=== PATIENT | female | born 1980 | race Caucasian/White ===

== ENCOUNTER 2017-09-07 00:42 | Inpatient (IN) | payer BC ==
[2017-09-07] MEDS ORDERED: Nalbuphine 20 MG/1 ML Amp ONE (01:09)
[2017-09-07] MEDS ORDERED: Nalbuphine 20 MG/1 ML Amp IVPUSH PRN (01:11)
[2017-09-07] MEDS ORDERED: Sodium Chloride 0.9% 10 ML Syringe FLUSH PRN (01:11)
[2017-09-07] MEDS ORDERED: Ondansetron 4 MG/2 ML SDV IVPUSH PRN (01:11)
[2017-09-07] MEDS ORDERED: Oxytocin/Lactated Ringers 10 UNIT/1,000 ML BAG IV SCH (01:15)
[2017-09-07] MEDS: Lactated Ringers 1,000 ML IV SCH ×2 (01:15→01:53)
[2017-09-07] MEDS ORDERED: Sodium Chloride 0.9% 100 ML ONE (01:17)
[2017-09-07] MEDS ORDERED: Oxytocin/Lactated Ringers 10 UNIT/1,000 ML BAG IV ONE (01:22)
[2017-09-07] MEDS ORDERED: Ampicillin 2 GM in Sodium Chloride 0.9% 100 ML IV ONE (01:30)
[2017-09-07] MEDS ORDERED: ePHEDrine 50 MG/ML SDV IVPUSH PRN (01:49)
[2017-09-07] MEDS ORDERED: fentaNYL 100 MCG/2 ML SDV EPIDUR PRN (01:49)
[2017-09-07] MEDS ORDERED: diphenhydrAMINE 50 MG/ML SDV IVPUSH PRN (01:49)
--- NOTE | 2017-09-07 01:52 | PCM.LDHP ---
L&D History of Present Illness - General Date of Service: 09/07/17 Admit Problem/Dx: Patient Status Order with Admit Dx/Problem 09/07/17 01:11 Patient Status [ADT] Routine Admission Diagnosis/Problem Admission Diagnosis/Problem 09/07/17 01:41 39-6/7 week intrauterine , active labor, advanced cervical dilation 09/07/17 01:41 Sandy is a 37-year-old 4 para 2011 white female who is admitted in active labor. She initially was 5 cm, her percent effaced, bulging bag roth and contractions every 3-5 minutes upon admission to labor and delivery early on the a.m. of 09/07/2017. She is progressed well and heart tones are reassuring. 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 Her LUIS of 09/08/2017 is determined by a certain last menstrual was started on 12/02/2016 and is supported by 23 ultrasounds dating 02/23/2017 for 2016 and 04/28/2017. Her previous obstetric history includes a last menstrual period of 12/02/2016, cycles every 28 days, menarche age 11. Not using any control time conception. Her previous obstetric history includes: 1. Male infant born 12/14/2007 at 40 weeks gestational age after 12 hours labor- 9 lbs. 4 oz.-as Rob 2. Male born 11/19/2010 after 40 weeks gestational age-6 hours of laborchild's name is Elvis 3. Miscarriage on 07/10/2000 1511 weeks gestational age. course is consistent with patient declining genetic evaluation. She is hypothyroid, on replacement meds and clinically euthyroid. She plans to breast- feed. She is diagnosed with right breastatypical lobular hyperplasia. Urine culture was positive for group B strep. She is a candidate for prophylaxis in L& D. First visit was on 02/23/2017. Patient seen regularly throughout her course. Weight gain was from 142 pounds up to 163.4 pounds for 21.4 pound weight gain. Her fundal height growth was appropriate. Vital signs remained stable throughout the course. Allergies: codeine derivatives which causes vomiting. Medications: 1. Raymond Thyroid 90 mg orally taken daily 2. Multivitamins daily Past medical history: 1. Cerebral palsy. 2. Atypical lobular hyperplasia right breast. Past surgical history: Repair of 1. Tendon transfer secondary to her cerebral palsy, Tonsillectomy 3. Dorsal rhizotomy October 2015 Social history: Patient is , lives in [place], is a college graduate. She works at [employer]. She does not use any significant loss of alcohol , drugs or tobacco. 's name is Jimy Garcia Laboratory testing in the course shows her blood to be a positive with negative antibody screen. First laboratory testing showed hemoglobin 12.4 g/dL. Platelets are 209,000. Her Pap smear was negative. Rubella titer shows immunity. RPR is nonreactive. I urine culture showed group B strep positive results. Hepatitis B antigen and HIV assays were both negative. Her chlamydia and gonorrhea assays both negative. TSH at that time was 1.886 mU/L which is normal. Second trimester labs included hemoglobin of 12.8 g/dL. Platelets are 167,000. Her diabetic screening test was normal at 112. Second trimester thyroid function studies showed a normal TSH and free T4 at 1.559 and 0.60 respectively. Third trimester results on 07/19/2017 were also normal with a free T4 0.73 and a TSH of 0.379 Review of systems: Repair of skin: Negative Lungs: No infectious symptoms or shortness of breath. Cardiovascular: No chest pain or exercise intolerance Breasts: Atypical lobular hyperplasia as described above -right breast GI: Negative : Changes associated principally Neurological: Cervical palsy Musculoskeletal: Atrophy right side upper and lower extremities secondary to cerebral palsy Physical exam: Gen. well-developed well-nourished pleasant female in no acute distress. Alert and oriented 3. Skin is warm dry without lesions. HEENT neck and back within normal limits Lungs clear with good breath sounds in all lung del cid. Cardiovascular exam shows regular and rhythm. Breast exam deferred having been done the first visit and found to be normal. Abdomen is protuberant with fundal height of 38 cm, vertex presentation by Micheal nurse. Cervical examination by myself shows 8 cm cervical dilation, 100% effacement, bulging bag roth, vertex presentation, anterior, very soft Extremities show atrophy in upper and lower extremities right side secondary to cerebral palsy Illogical exam consistent with cerebral palsy - Related Data Allergies/Adverse Reactions: Allergies Allergy/AdvReac Type Severity Reaction Status Date / Time codeine AdvReac Vomiting Verified 07/11/14 17:11 Home Medications: Home Meds Escitalopram Oxalate 20 mg PO DAILY 07/12/14 [History] Ibuprofen 600 mg PO Q6HR PRN #30 tablet 07/12/14 [Rx] PNV95/Ferrous Fumarate/FA [ Tablet] 1 tab PO DAILY 07/12/14 [History] Thyroid [[place] Thyroid] 60 mg PO DAILY 07/12/14 [History] Social & Family History - Tobacco Use Smoking Status *Q: Never Smoker Second Hand Smoke Exposure: No - Alcohol Use Days Per Week of Alcohol Use: 0 Number of Drinks Per Day: 0 Total Drinks Per Week: 0 - Recreational Drug Use Recreational Drug Use: No Drug Use in Last 12 Months: No H&P Review of Systems - Review of Systems: Review Of Systems: See Below L&D Exam - Exam Exam: See Below - Patient Data Lab Results Last 24 hrs: Laboratory Results - last 24 hr 09/07/17 Range/Units 01:15 WBC 9.74 (3.98-10.04) K/mm3 RBC 3.81 L (3.98-5.22) M/mm3 Hgb 13.2 (11.2-15.7) gm/L Hct 37.5 (34.1-44.9) % MCV 98.4 H (79.4-94.8) fl MCH 34.6 H (25.6-32.2) pg MCHC 35.2 (32.2-35.5) g/dl RDW Std Deviation 41.9 (36.4-46.3) fL Plt Count 168 L (182-369) K/mm3 MPV 10.5 (9.4-12.3) fl Neut % (Auto) 66.9 (34.0-71.1) % Lymph % (Auto) 23.2 (19.3-51.7) % [place] % (Auto) 7.4 (4.7-12.5) % Eos % (Auto) 1.7 (0.7-5.8) Baso % (Auto) 0.2 (0.1-1.2) % Neut # (Auto) 6.51 H (1.56-6.13) K/mm3 Lymph # (Auto) 2.26 (1.18-3.74) K/mm3 [place] # (Auto) 0.72 H (0.24-0.36) K/mm3 Eos # (Auto) 0.17 (0.04-0.36) K/mm3 Baso # (Auto) 0.02 (0.01-0.08) K/mm3 Result Diagrams: 09/07/17 01:15 Problem List Initiated/Reviewed/Updated: Yes Orders Last 24hrs: Active Orders 24 hr Category Date Time Status Patient Status [ADT] Routine ADT 09/07/17 01:11 Active Activity as Tolerated [RC] PFP Care 09/07/17 01:11 Active Communication Order [RC] ASDIRECTED Care 09/07/17 01:11 Active Heart Tones [RC] ASDIRECTED Care 09/07/17 01:12 Active Notify Provider [RC] PFP Care 09/07/17 01:11 Active Notify Provider [RC] PRN Care 09/07/17 01:11 Active Peripheral IV Care [RC] . DIRECTED Care 09/07/17 01:12 Active Vital Signs [RC] PER UNIT ROUTINE Care 09/07/17 01:11 Active Ampicillin 1 gm Med 09/07/17 05:30 Active Sodium Chloride 0.9% [Normal Saline] 100 ml IV Q4H Ampicillin 2 gm Med 09/07/17 01:30 Active Sodium Chloride 0.9% [Normal Saline] 100 ml IV ONETIME Lactated Ringers [Ringers, Lactated] 1,000 ml Med 09/07/17 01:15 Active IV ASDIRECTED Nalbuphine [Nubain] Med 09/07/17 01:11 Active 10 mg IVPUSH Q2H PRN Ondansetron [Zofran] Med 09/07/17 01:11 Active 4 mg IVPUSH Q4H PRN Oxytocin/Lactated Ringers [Pitocin in LR 10 Units/1,000 Med 09/07/17 01:15 Active ML] 10 unit in 1,000 ml IV .CONTINUOUS Sodium Chloride 0.9% [Saline Flush] Med 09/07/17 01:11 Active 10 ml FLUSH ASDIRECTED PRN Electronic Heart Tones Ext w TOCO [WOMSER] Ot 09/07/17 01:11 Ordered Routine Electronic Heart Tones Internal [WOMSER] Per Unit Ot 09/07/17 01:11 Ordered Routine Peripheral IV Insertion Adult [OM.PC] Routine Ot 09/07/17 01:11 Ordered Resuscitation Status Routine Resus Stat 09/07/17 01:11 Ordered Medication Orders Ampicillin Sodium 2 gm/ Sodium (Chloride) 100 mls @ 200 mls/hr IV ONETIME ONE Stop: 09/07/17 01:59 Ampicillin Sodium 1 gm/ Sodium (Chloride) 100 mls @ 200 mls/hr IV Q4H CARMEN Lactated Ringer's (Ringers, Lactated) 1,000 mls @ 100 mls/hr IV ASDIRECTED CARMEN Oxytocin/Lactated Ringer's (Pitocin In Lr 10 Units/1,000 Ml) 10 unit in 1,000 mls @ 500 mls/hr IV .CONTINUOUS CARMEN Nalbuphine HCl (Nubain) 10 mg IVPUSH Q2H PRN PRN Reason: Pain (moderate 4-6) Ondansetron HCl (Zofran) 4 mg IVPUSH Q4H PRN PRN Reason: Nausea/Vomiting Sodium Chloride (Saline Flush) 10 ml FLUSH ASDIRECTED PRN PRN Reason: Keep Vein Open Assessment/Plan Comment:: Assessment: 1. 39-6/7 week intrauterine , active labor, advanced cervical dilation 2. Group B strep positive per urine culturepatient has received first dose of antibiotics 3. Patient desiring epidural 4. breast-feed 5. Cerebral palsy with atrophy of right upper and lower extremities Plan: 1. Anticipate normal spontaneous vaginal delivery 2. Epidural if at all possible timewise 3. Group B strep prophylaxis with ampicillinfirst dose given 4. Support breast feeding decision.
[2017-09-07] MEDS ORDERED: Bupivacaine/fentaNYL/NS 100 ML Bag EPIDUR SCH (02:00)
--- NOTE | 2017-09-07 02:07 | PCM.PREANE ---
Preanesthetic Assessment - Anesthesia/Transfusion/Family Hx Anesthesia History: Prior Anesthesia Without Reaction Family History of Anesthesia Reaction: No - Review of Systems General: No Symptoms Pulmonary: No Symptoms Cardiovascular: No Symptoms Gastrointestinal: No Symptoms Neurological: No Symptoms Other: Reports: None - Physical Assessment Pulse: 98 O2 Sat by Pulse Oximetry: 100 Respiratory Rate: 22 Blood Pressure: 146/63 Temperature: 36.3 C ASA Class: 2 Mental Status: Alert & Oriented x3 Airway Class: Mallampati = 1 Dentition: Reports: Normal Dentition Thyro-Mental Finger Breadths: 3 Mouth Opening Finger Breadths: 3 ROM/Head Extension: Full Lungs: Clear to Auscultation, Normal Respiratory Effort Cardiovascular: Regular Rate, Regular Rhythm, No Murmurs - Lab Values: Laboratory Last Values WBC 9.74 K/mm3 (3.98-10.04) 09/07/17 01:15 RBC 3.81 M/mm3 (3.98-5.22) L 09/07/17 01:15 Hgb 13.2 gm/L (11.2-15.7) 09/07/17 01:15 Hct 37.5 % (34.1-44.9) 09/07/17 01:15 MCV 98.4 fl (79.4-94.8) H 09/07/17 01:15 MCH 34.6 pg (25.6-32.2) H 09/07/17 01:15 MCHC 35.2 g/dl (32.2-35.5) 09/07/17 01:15 RDW Std Deviation 41.9 fL (36.4-46.3) 09/07/17 01:15 Plt Count 168 K/mm3 (182-369) L 09/07/17 01:15 MPV 10.5 fl (9.4-12.3) 09/07/17 01:15 Neut % (Auto) 66.9 % (34.0-71.1) 09/07/17 01:15 Lymph % (Auto) 23.2 % (19.3-51.7) 09/07/17 01:15 [place] % (Auto) 7.4 % (4.7-12.5) 09/07/17 01:15 Eos % (Auto) 1.7 (0.7-5.8) 09/07/17 01:15 Baso % (Auto) 0.2 % (0.1-1.2) 09/07/17 01:15 Neut # (Auto) 6.51 K/mm3 (1.56-6.13) H 09/07/17 01:15 Lymph # (Auto) 2.26 K/mm3 (1.18-3.74) 09/07/17 01:15 [place] # (Auto) 0.72 K/mm3 (0.24-0.36) H 09/07/17 01:15 Eos # (Auto) 0.17 K/mm3 (0.04-0.36) 09/07/17 01:15 Baso # (Auto) 0.02 K/mm3 (0.01-0.08) 09/07/17 01:15 - Allergies Allergies/Adverse Reactions: Allergies Allergy/AdvReac Type Severity Reaction Status Date / Time codeine AdvReac Vomiting Verified 07/11/14 17:11 - Anesthesia Plan Pre-Op Medication Ordered: None - Acknowledgements Anesthesia Type Planned: Spinal Pt an Appropriate Candidate for the Planned Anesthesia: Yes Alternatives and Risks of Anesthesia Discussed w Pt/Guardian: Yes Pt/Guardian Understands and Agrees with Anesthesia Plan: Yes PreAnesthesia Questionnaire Gastrointestinal 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: GERD Other Musculoskeletal History: lower back surgery - SUBSTANCE USE Smoking Status *Q: Never Smoker Second Hand Smoke Exposure: No Days Per Week of Alcohol Use: 0 Number of Drinks Per Day: 0 Total Drinks Per Week: 0 Recreational Drug Use History: No - HOME MEDS Home Medications: Home Meds Escitalopram Oxalate 20 mg PO DAILY 07/12/14 [History] Ibuprofen 600 mg PO Q6HR PRN #30 tablet 07/12/14 [Rx] PNV95/Ferrous Fumarate/FA [ Tablet] 1 tab PO DAILY 07/12/14 [History] Thyroid [[place] Thyroid] 60 mg PO DAILY 07/12/14 [History] - CURRENT (IN HOUSE) MEDS Current Meds: Current Medications Diphenhydramine HCl (Benadryl) 25 mg IVPUSH Q6H PRN PRN Reason: Itching Ephedrine Sulfate (Ephedrine Sulfate) 5 mg IVPUSH ASDIRECTED PRN PRN Reason: HYPOTENTSION Fentanyl (Sublimaze) 100 mcg EPIDUR Q3H PRN PRN Reason: PAIN Fentanyl/Bupivacaine HCl (Fentanyl/Bupivacaine/Ns 2 Mcg-0.125% 100 Ml) 100 ml EPIDUR ASDIRECTED [facility] Ampicillin Sodium 1 gm/ Sodium (Chloride) 100 mls @ 200 mls/hr IV Q4H CARMEN Lactated Ringer's (Ringers, Lactated) 1,000 mls @ 100 mls/hr IV ASDIRECTED CAR[facility] Last Admin: 09/07/17 01:53 Dose: 100 mls/hr Oxytocin/Lactated Ringer's (Pitocin In Lr 10 Units/1,000 Ml) 10 unit in 1,000 mls @ 500 mls/hr IV .CONTINUOUS [facility] Nalbuphine HCl (Nubain) 10 mg IVPUSH Q2H PRN PRN Reason: Pain (moderate 4-6) Last Admin: 09/07/17 01:30 Dose: 10 mg Ondansetron HCl (Zofran) 4 mg IVPUSH Q4H PRN PRN Reason: Nausea/Vomiting Sodium Chloride (Saline Flush) 10 ml FLUSH ASDIRECTED PRN PRN Reason: Keep Vein Open Discontinued Medications Ampicillin Sodium 2 gm/ Sodium (Chloride) 100 mls @ 200 mls/hr IV ONETIME ONE Stop: 09/07/17 01:59 Last Admin: 09/07/17 01:15 Dose: 200 mls/hr Sodium Chloride (Normal Saline) Confirm Administered Dose 100 mls @ as directed .ROUTE .STK-MED ONE Stop: 09/07/17 01:18 Last Admin: 09/07/17 01:44 Dose: Not Given Oxytocin/Lactated Ringer's (Pitocin In Lr 10 Units/1,000 Ml) Confirm Administered Dose 10 unit in 1,000 mls @ as directed IV .STK-MED ONE Stop: 09/07/17 01:23 Last Admin: 09/07/17 01:46 Dose: Not Given Nalbuphine HCl (Nubain) Confirm Administered Dose 20 mg .ROUTE .STK-MED ONE Stop: 09/07/17 01:10 Last Admin: 09/07/17 01:44 Dose: Not Given
--- NOTE | 2017-09-07 02:57 | PCM.SN ---
- Free Text/Narrative Note: Tabitha is a 37-year-old 4 now para 3013 white female who is admitted during the night of 09/06/2017 in active labor. She is justin every 3-5 minutes apart, was 5 cm dilated, 100% effaced with bulging bag of roth. heart tones were reassuring and patient appeared to be in active labor. Patient desired regional block and because of the rapid vessel labor a spinal block was placed. She went on to deliver a viable, lucio, female infant at 0227 hrs. on 09/07/2017. The baby weighed 3360 g, (7 pounds 6.5 ounces), was 21.0 inches long, had Apgars of 8 and 9 and delivered in a direct occiput anterior position. The perineum remained intact and no stitches were required. Baby was placed on mom's abdomen and mouth were bulb suctioned. The umbilical cord had 3 vesselsand was clamped and then eventually cut by the father of the baby. Her blood was obtained. Placenta delivered in a Rivera presentation, appeared to be intact and complete at 0232 hours. It was discarded per patient desire. Estimated blood loss was 100 mL. Patient plans to breast-feed. Condition: Good
[2017-09-07] MEDS ORDERED: Witch Hazel Medicated Pads 100/Jar TOP PRN (03:49)
[2017-09-07] MEDS ORDERED: Docusate Sodium 100 MG Cap PO PRN (03:49)
[2017-09-07] MEDS ORDERED: Acetaminophen 325 MG Tab PO PRN (03:49)
[2017-09-07] MEDS ORDERED: Lanolin 100% Cream 7 GM Tube TOP PRN (03:49)
[2017-09-07] MEDS ORDERED: Benzocaine/Menthol 20%-0.5% Spray 56 GM Canister TOP PRN (03:49)
[2017-09-07] MEDS: Ibuprofen 600 MG Tab PO PRN ×3 (04:03→20:32)
[2017-09-07] MEDS ORDERED: Ampicillin 1 GM in Sodium Chloride 0.9% 100 ML IV SCH (05:30)
--- NOTE | 2017-09-07 07:16 | PCM48HPAN ---
Post Anesthesia Note - EVALUATION WITHIN 48HRS OF ANESTHETIC Vital Signs in Normal Range: Yes Patient Participated in Evaluation: Yes Respiratory Function Stable: Yes Airway Patent: Yes Cardiovascular Function Stable: Yes Hydration Status Stable: Yes Pain Control Satisfactory: Yes Nausea and Vomiting Control Satisfactory: Yes Mental Status Recovered: Yes
[2017-09-07] MEDS ORDERED: Thyroid 60 MG Tab PO SCH (09:00)
[2017-09-07] MEDS ORDERED: Prenatal Multivitamin with Calcium/Folic Acid/Iron Tab PO SCH ×2 (09:00→12:00)
[2017-09-07] MEDS: IRON PO SCH (11:02)
[2017-09-07] MEDS: PRENATAL MULTIVITAMIN WITH CALCIUM PO SCH (11:02)
[2017-09-07] MEDS: Citalopram 20 MG Tab PO SCH (11:02)
[2017-09-07] MEDS: FOLIC ACID PO SCH (11:02)
--- NOTE | 2017-09-07 21:36 | PCM.SN ---
- Free Text/Narrative Note: No concerns during the course of this day. This is a day of delivery. Nursing doing well. Patient exam doing well, has little lochia. Is voiding without concerns. Plan: Routine cares.
[2017-09-07] MEDS ORDERED: Bupivacaine 0.25% 10 ML SDV ONE (22:22)
[2017-09-08] MEDS: Ibuprofen 600 MG Tab PO PRN ×2 (03:32→12:35)
[2017-09-08] MEDS: IRON PO SCH (07:59)
[2017-09-08] MEDS: PRENATAL MULTIVITAMIN WITH CALCIUM PO SCH (07:59)
[2017-09-08] MEDS: FOLIC ACID PO SCH (07:59)
[2017-09-08] MEDS: Citalopram 20 MG Tab PO SCH (08:06)
--- NOTE | 2017-09-08 13:01 | PCM.DCSUM1 ---
Discharge Summary - Hospital Course Free Text/Narrative:: Tabitha is a 37-year-old 4 now para 3013 white female who is admitted during the night of 09/06/2017 in active labor. She is justin every 3-5 minutes apart, was 5 cm dilated, 100% effaced with bulging bag of roth. heart tones were reassuring and patient appeared to be in active labor. Patient desired regional block and because of the rapid vessel labor a spinal block was placed. She went on to deliver a viable, lucio, female at 0227 hrs. on 09/07/2017. The baby weighed 3360 g, (7 pounds 6.5 ounces), was 21.0 inches long, had Apgars of 8 and 9 and delivered in a direct occiput anterior position. The perineum remained intact and no stitches were required. Baby was placed on mom's abdomen and mouth were bulb suctioned. The umbilical cord had 3 vesselsand was clamped and then eventually cut by the father of the baby. Her blood was obtained. Placenta delivered in a Rivera presentation, appeared to be intact and complete at 0232 hours. It was discarded per patient desire. Estimated blood loss was 100 mL. Patient plans to breast-feed. patient has done well. She is ambulating well, nursing without problems and voiding without concerns. Follow-up CBC is within normal limits for the period. She desires to be discharged today. - Discharge Data Discharge Date: 09/08/17 Discharge Disposition: Home, Self-Care 01 Condition: Good - Patient Instructions Diet: Regular Diet as Tolerated (Nursing diet with increased calories and calcium as recommended) Activity: As Tolerated (No intercourse or tampons until bleeding resolves) Driving: May Drive Today Showering/Bathing: May Shower (Take a bath) Notify Provider of: Fever, Increased Pain, Swelling and Redness, Nausea and/or Vomiting - Discharge Plan Home Medications: Home Meds Escitalopram Oxalate 20 mg PO DAILY 07/12/14 [History] PNV95/Ferrous Fumarate/FA [ Tablet] 1 tab PO DAILY 07/12/14 [History] Thyroid [[place] Thyroid] 90 mg PO DAILY 07/12/14 [History] Ibuprofen [IJD: Ibuprofen] 600 mg PO Q4H PRN tablet 09/08/17 [Rx] Referrals: Lucas Powell MD [Primary Care Provider] - [facility] - Discharge Summary/Plan Comment DC Time >30 min.: No Discharge Summary/Plan Comment: Discharge instructions: 1. Discharge home 2. Diet, activity and follow-up discussed with patient. Recommend nursing diet with increased calories and calcium. 3. Precautions given concern increased pain, bleeding, temperature, signs/ symptoms of DVT/PE. 4. Medications per home medication was printed, discussed with and given to the patient. 5. [facility] Diagnosis: Term -delivered Condition: Good - Patient Data Vitals - Most Recent: Last Vital Signs Temp 36.7 C 09/07/17 21:37 Pulse 60 09/08/17 03:28 Resp 12 09/08/17 03:28 BP 126/72 09/08/17 03:28 Pulse Ox 98 09/08/17 03:28 Weight - Most Recent: 73.255 kg I&O - Last 24 hours: Intake & Output 09/07/17 09/08/17 09/08/17 22:59 06:59 14:59 Intake Total 210 120 Balance 210 120 Lab Results - Last 24 hrs: Laboratory Results - last 24 hr 09/08/17 Range/Units 06:43 WBC 8.30 (3.98-10.04) K/mm3 RBC 3.40 L (3.98-5.22) M/mm3 Hgb 11.9 (11.2-15.7) gm/L Hct 34.2 (34.1-44.9) % MCV 100.6 H (79.4-94.8) fl MCH 35.0 H (25.6-32.2) pg MCHC 34.8 (32.2-35.5) g/dl RDW Std Deviation 43.0 (36.4-46.3) fL Plt Count 142 L (182-369) K/mm3 MPV 10.2 (9.4-12.3) fl Med Orders - Current: Current Medications Acetaminophen (Tylenol) 650 mg PO Q4H PRN PRN Reason: mild pain or fever Benzocaine/Menthol (Dermoplast Pain Relief [place]) 0 gm TOP ASDIRECTED PRN PRN Reason: Perineal Comfort Measure Citalopram Hydrobromide (Celexa) 40 mg PO DAILY [facility] Last Admin: 09/08/17 08:06 Dose: 40 mg Docusate Sodium (Colace) 100 mg PO BID PRN PRN Reason: Constipation Emollient Ointment (Lansinoh Hpa) 0 gm TOP ASDIRECTED PRN PRN Reason: Sore Nipples Last Admin: 09/08/17 08:02 Dose: 1 applic Ibuprofen (Motrin) 600 mg PO Q4H PRN PRN Reason: Mild pain or fever Last Admin: 09/08/17 12:35 Dose: 600 mg Thyroid 90 Mg Tab 0 each PO DAILY [facility] Last Admin: 09/08/17 08:00 Dose: 1 each Prenat Multivit/[place]/Iron/Folic Ac ( Plus Iron) 0 each PO DAILY [facility] Last Admin: 09/08/17 07:59 Dose: 1 each Witch Jessica (Tucks) 1 pad TOP ASDIRECTED PRN PRN Reason: Hemorrhoid pain Discontinued Medications Diphenhydramine HCl (Benadryl) 25 mg IVPUSH Q6H PRN PRN Reason: Itching Ephedrine Sulfate (Ephedrine Sulfate) 5 mg IVPUSH ASDIRECTED PRN PRN Reason: HYPOTENTSION Fentanyl (Sublimaze) 100 mcg EPIDUR Q3H PRN PRN Reason: PAIN Fentanyl/Bupivacaine HCl (Fentanyl/Bupivacaine/Ns 2 Mcg-0.125% 100 Ml) 100 ml EPIDUR ASDIRECTED [facility] Ampicillin Sodium 2 gm/ Sodium (Chloride) 100 mls @ 200 mls/hr IV ONETIME ONE Stop: 09/07/17 01:59 Last Admin: 09/07/17 01:15 Dose: 200 mls/hr Ampicillin Sodium 1 gm/ Sodium (Chloride) 100 mls @ 200 mls/hr IV Q4H [facility] Lactated Ringer's (Ringers, Lactated) 1,000 mls @ 100 mls/hr IV ASDIRECTED [facility] Last Admin: 09/07/17 01:53 Dose: 100 mls/hr Oxytocin/Lactated Ringer's (Pitocin In Lr 10 Units/1,000 Ml) 10 unit in 1,000 mls @ 500 mls/hr IV .CONTINUOUS [facility] Sodium Chloride (Normal Saline) Confirm Administered Dose 100 mls @ as directed .ROUTE .STK-MED ONE Stop: 12/13/17 01:18 Last Admin: 09/07/17 01:44 Dose: Not Given Oxytocin/Lactated Ringer's (Pitocin In Lr 10 Units/1,000 Ml) Confirm Administered Dose 10 unit in 1,000 mls @ as directed IV .STK-MED ONE Stop: 09/07/17 01:23 Last Admin: 09/07/17 01:46 Dose: Not Given Nalbuphine HCl (Nubain) Confirm Administered Dose 20 mg .ROUTE .STK-MED ONE Stop: 09/07/17 01:10 Last Admin: 09/07/17 01:44 Dose: Not Given Nalbuphine HCl (Nubain) 10 mg IVPUSH Q2H PRN PRN Reason: Pain (moderate 4-6) Last Admin: 09/07/17 01:30 Dose: 10 mg Ondansetron HCl (Zofran) 4 mg IVPUSH Q4H PRN PRN Reason: Nausea/Vomiting Prenat Multivit/[place]/Iron/Folic Ac ( Plus Iron) 1 each PO DAILY@1200 CARMEN Prenat Multivit/Clinical Manager/Iron/Folic Ac ( Plus Iron) 1 each PO DAILY [facility] Last Admin: 09/07/17 11:02 Dose: Not Given Sodium Chloride (Saline Flush) 10 ml FLUSH ASDIRECTED PRN PRN Reason: Keep Vein Open Thyroid ([place] Thyroid) 60 mg PO DAILY [facility] Last Admin: 09/07/17 11:02 Dose: Not Given *Q Meaningful Use (DIS) - VTE *Q VTE Criteria *Q: - Stroke *Q Stroke Criteria *Q: - AMI *Q AMI Criteria *Q:
== END 2017-09-08 15:40 | disposition home or self-care (01) | DRG 560 ==
LOC: JD.OBCHECK 00:42 → JD.OB 00:46 → JD.OBCHECK 01:11 → JD.OB 01:24 → OBSVTOIN 02:27 → JD.MS 02:27 → JD.OB 13:11
PROVIDERS: ADMIT Obstetrics & Gynecology; ATTEND Obstetrics & Gynecology
PROC: 10E0XZZ Delivery of Products of Conception, External Approach (ICD-10-PCS; principal; 2017-09-07)
PROC: 00HU33Z Insertion of Infusion Device into Spinal Canal, Percutaneous Approach (ICD-10-PCS; 2017-09-07)
PROC: 3E0R3BZ Introduction of Anesthetic Agent into Spinal Canal, Percutaneous Approach (ICD-10-PCS; 2017-09-07)
DX: O99.284 Endocrine, nutritional and metabolic diseases complicating childbirth (principal); E03.9 Hypothyroidism, unspecified; Z3A.00 Weeks of gestation of pregnancy not specified; Z37.0 Single live birth; Z88.5 Allergy status to narcotic agent; Z79.899 Other long term (current) drug therapy; O99.354 Diseases of the nervous system complicating childbirth; G80.9 Cerebral palsy, unspecified; O99.824 Streptococcus B carrier state complicating childbirth
CPT/HCPCS: 01967; 36415; 51701; 59409; 85025; 85027; A9270-GY; J0290; J2300; J7030; J7120

== ENCOUNTER 2020-09-09 08:56 | Inpatient (IN) | payer BC ==
[~2020-09-09 08:56] MED LIST: Bupivacaine 0.25% 10 ML SDV ONE; Lidocaine 1.5% with EPINEPHrine 1:200,000 5 ML Amp ONE
[2020-09-09] MEDS ORDERED: Sodium Chloride 0.9% 10 ML Syringe FLUSH PRN (09:22)
[2020-09-09] MEDS ORDERED: Nalbuphine 10 MG/1 ML Vial IVPUSH PRN (09:22)
[2020-09-09] MEDS ORDERED: Oxytocin/Lactated Ringers 10 UNIT/1,000 ML BAG IV SCH (09:30)
[2020-09-09] MEDS: Lactated Ringers 1,000 ML IV SCH ×3 (09:44→12:14)
--- NOTE | 2020-09-09 09:59 | PCM.LDHP ---
L&D History of Present Illness - General Date of Service: 09/09/20 Admit Problem/Dx: Patient Status Order with Admit Dx/Problem 09/09/20 09:23 Patient Status [ADT] Routine Admission Diagnosis/Problem Admission Diagnosis/Problem Labor established 09/09/20 09:44 Tabitha is a 40-year-old 5 para 3-0-1-3 white female admitted at 40 and 07 weeks gestational age with an LUIS of 09/09/2020 in active labor with advanced cervical dilation of 6 cm. Source of Information: Patient History Limitations: Reports: No Limitations - History of Present Illness Introduction:: Tabitha is a 40-year-old 5 para 3-0-1-3 white female admitted at 40 and 07 weeks gestational age with an LUIS of 09/09/2020 in active labor with advanced cervical dilation of 6 cm. She reports starting contractions on the a.m. of 09/09/2020 and they progressed to about q. 8 minutes at this time. They are moderate in strength. Baby's been active. heart tones are reassuring. INTAKE CLERK history: 5 para 3-0-1-3. Patient normal menarch. Cycles monthly. LMP 12/04/2019, relatively certain and not on any control at the time of conception. is dated by the LMP and is supported by multiple ultrasounds during the course of the . Patient denies any abnormal Pap smears or STIs. Her past obstetric history includes the followin. Male born 12/14/2007 at 42 weeks gestational age after 12 hours of labor9 pounds 4 ouncesNSVDepiduralSt. [facility]. Male born 11/19/2010 at 40 weeks gestational age after 6 hours of labor8 pounds 15 ouncesNSVDepiduralSt. [facility] 3. Miscarriage on 07/10/2015 at 11 weeks gestational age 4. Female born 09/07/2018 at 39-6/7 weeks gestational age after 8 hours of labor7 pounds 6 ouncesNSVDspinal anesthesiaSt. [facility] course: Patient was initially seen for the at 11 weeks and 2 days. She has made normal progress fundal height lundberg during the course the with normal blood pressures and vital signs throughout the . No significant concerns have been noted. Her risk factors include risk of advanced maternal age, history of cerebral palsy, history of macrosomic baby. She had an [place] depression screen score of 3/30 on 04/16/2020. She plans to breast-feed. Prequel noninvasive screen was negative for trisomy 21, 18 and 13. She had a history of mild thrombocytopenia during . She is also hypothyroid, on [place] Thyroid and clinically euthyroid at this time on replacement meds. Weight gain during the course of the was from 133.3 pounds to 152 pounds for approximately 19 pound increase. Laboratory testing in shows blood to be a positive with a negative antibody screen. First hemoglobin was 12.3 g/dL and platelets are 204 ,000. Pap smear was normal. Rubella titer was immune and RPR was nonreactive. Patient's urine culture showed Gardnerella vaginalis and this was treated early in . Hepatitis B surface antigen and HIV assays were both negative. Chlamydia and gonorrhea tests were negative. TSH on 01/14/2020 was normal at 0.031 milliunits per milliliter. Her labs showed a hemoglobin 12.5 g/dL. Platelets are 175,000. Diabetic screening test was 134. Thyroid function studies were normal. She is group B strep negative. Allergies: Codeine derivatives which cause her to vomit Medications: 1. [place] Thyroid 15 mg oral tablet daily plus [place] Thyroid 90 mg daily. Total dosage is 105 mg of [place] Thyroid per day 2. Ferrous sulfate 325 mg p.o. daily 3. vitamins 1 p.o. daily 4. Vitamin D1000 units daily 5. Multivitamin oral tablet daily Past medical history: 1. Hypothyroidism on replacement and clinically euthyroid 2. Vaginal delivery x3 with largest baby 9 pounds 4 ounces 3. History of cerebral palsy 4. Miscarriage x1 with third 2014 5. Atypical lobular hyperplasia right breast Past surgical history: 1. Tendon transfers for cerebral palsy 2. Dorsal spine surgery 10/2015 for cerebral palsy 3. Tonsillectomy Family history: Mother is alive and well. Father is alive and well but with a history of skin cancer. 3 sisters alive and well. No related issues. 1 sister with history of breast cancer. Maternal grandmother is alive and well. Paternal grandmother is at age 95. Paternal grandfather from lung cancer. No known family history of bleeding, clotting disorders, anesthesia related issues, related issues. 1 paternal aunt with breast cancer. Social history: Patient is . is Jimy. 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 She is a college graduate. She does not use any significant alcohol, drugs or tobacco. She is an avid runner and exercises regularly. They live in [place] [employer]. Review of systems: In general patient has no complaints. Has been active. Contractions as above. Skin: Negative Lungs: No infectious symptoms or shortness of breath Cardiovascular: No chest pain or exercise intolerance Breasts: No lumps, changes in size, pain, dimpling, discharge or axillary or supraclavicular concerns. GI: Negative : Changes as per history of . Musculoskeletal: Negative Neurological: Negative Physical exam: In general the patient is well-developed, well-nourished, pleasant female of stated age in no acute distress. She is reporting contractions at a moderate intensity. On last evaluation in clinic patient noted to have blood pressure 110/62. Weight was 152.8. Fundal height was appropriate for dates. Her pregravid weig ht was 133.3. Height is 5 feet 6 inches. Pregravid BMI was 21.5. Skin is warm dry without lesions. HEENT, neck and back within normal limits. Lungs are clear with good breath sounds in all lung del cid. Cardiovascular exam shows regular and rhythm without murmurs. Exam was done at first annual visit and found to be normal. Is not repeated at this time. Patient does plan to breast-feed. Abdomen is gravid with fundal height consistent with dates. Baby in vertex presentation.. Genital exam per digital done by nurse shows patient to be 6 cm dilated. Baby in vertex presentation. Bag roth is intact. Extremities and neurological exam are grossly within normal limits. - Related Data Allergies/Adverse Reactions: Allergies Allergy/AdvReac Type Severity Reaction Status Date / Time codeine AdvReac Vomiting Verified 07/11/14 17:11 Home Medications: Home Meds Escitalopram Oxalate 20 mg PO DAILY 07/12/14 [History] Pnv No.95/Ferrous Fum/Folic AC [ Tablet] 1 tab PO DAILY 07/12/14 [History] Thyroid [[place] Thyroid] 90 mg PO DAILY 07/12/14 [History] Ibuprofen [IJD: Ibuprofen] 600 mg PO Q4H PRN tablet 09/08/17 [Rx] Past Medical History Gastrointestinal 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: GERD INTAKE 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: Other Musculoskeletal History: lower back surgery Neurological 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: Cerebral Palsy Psychiatric 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: Depression Endocrine/Metabolic 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: Hypothyroidism - Past Surgical History HEENT Surgical 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: Tonsillectomy Neurological Surgical 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: Other (See Below) Other Neurological Surgeries/Procedures: lower back Social & Family History - Family History Family Medical History: No Pertinent Family History - Caffeine Use Caffeine Use: Reports: Coffee, Soda, Tea Other Caffeine Use: 2-3 per day H&P Review of Systems - Review of Systems: Review Of Systems: See Below L&D Exam - Exam Exam: See Below - Vital Signs Weight: 70.08 kg Problem List Initiated/Reviewed/Updated: Yes Orders Last 24hrs: Active Orders 24 hr Category Date Time Status Patient Status [ADT] Routine ADT 09/09/20 09:23 Active Activity as Tolerated [RC] PFP Care 09/09/20 09:22 Active Communication Order [RC] ASDIRECTED Care 09/09/20 09:22 Active Heart Tones [RC] ASDIRECTED Care 09/09/20 09:23 Active Non Stress Test [RC] PER UNIT ROUTINE Care 09/09/20 09:22 Active Notify Provider [RC] PFP Care 09/09/20 09:22 Active Notify Provider [RC] PRN Care 09/09/20 09:22 Active Peripheral IV Care [RC] . DIRECTED Care 09/09/20 09:23 Active Vital Signs [RC] PER UNIT ROUTINE Care 09/09/20 09:22 Active CBC WITH AUTO DIFF [HEME] Stat Lab 09/09/20 09:22 Ordered CORONAVIRUS COVID-19 PCR PHL Stat Lab 09/09/20 09:27 Ordered RAPID PLASMA REAGIN,RPR [CHEM] Routine Lab 09/09/20 09:22 Ordered Lactated Ringers [Ringers, Lactated] 1,000 ml Med 09/09/20 09:30 Active IV ASDIRECTED Nalbuphine [Nubain] Med 09/09/20 09:22 Active 10 mg IVPUSH Q2H PRN Oxytocin/Lactated Ringers [Pitocin in LR 10 Units/1,000 Med 12/15/20 09:30 Active ML] 10 unit in 1,000 ml IV .CONTINUOUS Sodium Chloride 0.9% [Saline Flush] Med 09/09/20 09:22 Active 10 ml FLUSH ASDIRECTED PRN Electronic Heart Tones Ext w TOCO [WOMSER] Oth 09/09/20 09:22 Ordered Routine Electronic Heart Tones Internal [WOMSER] Per Unit Oth 09/09/20 09:22 Ordered Routine Peripheral IV Insertion Adult [OM.PC] Routine Oth 09/09/20 09:22 Ordered Resuscitation Status Routine Resus Stat 09/09/20 09:22 Ordered Medication Orders Oxytocin/Lactated Ringer's (Pitocin In Lr 10 Units/1,000 Ml) 10 unit in 1,000 mls @ 500 mls/hr IV .CONTINUOUS CARMEN Lactated Ringer's (Ringers, Lactated) 1,000 mls @ 100 mls/hr IV ASDIRECTED CARMEN Last Admin: 09/09/20 09:44 Dose: 100 mls/hr Documented by: KELLCOL Nalbuphine HCl (Nubain) 10 mg IVPUSH Q2H PRN PRN Reason: Pain Sodium Chloride (Saline Flush) 10 ml FLUSH ASDIRECTED PRN PRN Reason: Keep Vein Open Assessment/Plan Comment:: 1. 5 para 3-0-1-3 white female at 40 and 07 weeks gestational age with an LUIS of 09/09/2020 admitted in active labor with advanced cervical dilation 2. Risk factors for the include advanced maternal age, history of cerebral palsy, history of macrosomic baby 3. Patient desires natural labor 4. Group B strep screen is negative 5. [place] noninvasive screen for trisomy 21, 18 and 13 was negative. 6. Patient has received her influenza vaccination on 07/16/2020 and her Tdap on the same day. She is rubella immune. 7. Patient plans to breast-feed which she has done in the past. Plan: 1. Anticipate 2. Admission labs include Covid19, CBC and RPR per protocol 3. Routine labor care 4. IV Nubain as needed if patient desires analgesia in labor 5. Support breast-feeding decision.
[2020-09-09] MEDS ORDERED: Bupivacaine/fentaNYL/NS 100 ML Bag EPIDUR PRN (10:03)
[2020-09-09] MEDS ORDERED: ePHEDrine 50 MG/ML SDV IVPUSH PRN (10:03)
[2020-09-09] MEDS ORDERED: diphenhydrAMINE 50 MG/ML SDV IVPUSH PRN (10:03)
[2020-09-09] MEDS: fentaNYL 100 MCG/2 ML SDV EPIDUR PRN ×2 (10:13→12:46)
--- NOTE | 2020-09-09 10:52 | PCM.PREANE ---
Preanesthetic Assessment - Procedure Proposed Procedure: Continuous labor epidural - Anesthesia/Transfusion/Family Hx Anesthesia History: Prior Anesthesia Without Reaction - Review of Systems General: No Symptoms Pulmonary: No Symptoms Cardiovascular: No Symptoms Gastrointestinal: No Symptoms Neurological: Pre-Existing Deficit (cerebral palsy) Other: Reports: Depression, Anxiety - Physical Assessment Height: 1.68 m Weight: 70.08 kg ASA Class: 2 Mental Status: Alert & Oriented x3 Airway Class: Mallampati = 2 Dentition: Reports: Normal Dentition Thyro-Mental Finger Breadths: 3 Mouth Opening Finger Breadths: 3 ROM/Head Extension: Full Lungs: Clear to Auscultation, Normal Respiratory Effort Cardiovascular: Regular Rate, Regular Rhythm - Lab Values: Laboratory Last Values WBC 10.23 K/mm3 (3.98-10.04) H 09/09/20 09:45 RBC 3.75 M/mm3 (3.98-5.22) L 09/09/20 09:45 Hgb 13.2 gm/dl (11.2-15.7) 09/09/20 09:45 Hct 38.0 % (34.1-44.9) 09/09/20 09:45 MCV 101.3 fl (79.4-94.8) H 09/09/20 09:45 MCH 35.2 pg (25.6-32.2) H 09/09/20 09:45 MCHC 34.7 g/dl (32.2-35.5) 09/09/20 09:45 RDW Std Deviation 43.6 fL (36.4-46.3) 09/09/20 09:45 Plt Count 156 K/mm3 (182-369) L 09/09/20 09:45 MPV 10.6 fl (9.4-12.3) 09/09/20 09:45 Neut % (Auto) 72.4 % (34.0-71.1) H 09/09/20 09:45 Lymph % (Auto) 20.9 % (19.3-51.7) 09/09/20 09:45 [place] % (Auto) 5.0 % (4.7-12.5) 09/09/20 09:45 Eos % (Auto) 0.5 (0.7-5.8) L 09/09/20 09:45 Baso % (Auto) 0.2 % (0.1-1.2) 09/09/20 09:45 Neut # (Auto) 7.41 K/mm3 (1.56-6.13) H 09/09/20 09:45 Lymph # (Auto) 2.14 K/mm3 (1.18-3.74) 09/09/20 09:45 [place] # (Auto) 0.51 K/mm3 (0.24-0.36) H 09/09/20 09:45 Eos # (Auto) 0.05 K/mm3 (0.04-0.36) 09/09/20 09:45 Baso # (Auto) 0.02 K/mm3 (0.01-0.08) 09/09/20 09:45 - Allergies Allergies/Adverse Reactions: Allergies Allergy/AdvReac Type Severity Reaction Status Date / Time codeine AdvReac Vomiting Verified 07/11/14 17:11 - Acknowledgements Anesthesia Type Planned: Epidural Pt an Appropriate Candidate for the Planned Anesthesia: Yes Alternatives and Risks of Anesthesia Discussed w Pt/Guardian: Yes Pt/Guardian Understands and Agrees with Anesthesia Plan: Yes PreAnesthesia Questionnaire Gastrointestinal 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: GERD 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: Other Musculoskeletal History: lower back surgery Neurological 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: Cerebral Palsy Psychiatric 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: Depression Endocrine/Metabolic 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: Hypothyroidism - Past Surgical History HEENT Surgical 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: Tonsillectomy Neurological Surgical 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: Other (See Below) Other Neurological Surgeries/Procedures: lower back - HOME MEDS Home Medications: Home Meds Escitalopram Oxalate 20 mg PO DAILY 07/12/14 [History] Pnv No.95/Ferrous Fum/Folic AC [ Tablet] 1 tab PO DAILY 07/12/14 [History] Thyroid [[place] Thyroid] 90 mg PO DAILY 07/12/14 [History] Ibuprofen [IJD: Ibuprofen] 600 mg PO Q4H PRN tablet 09/08/17 [Rx] - CURRENT (IN HOUSE) MEDS Current Meds: Current Medications Diphenhydramine HCl (Benadryl) 25 mg IVPUSH Q6H PRN PRN Reason: pruritis Ephedrine Sulfate (Ephedrine Sulfate) 5 mg IVPUSH ASDIRECTED PRN PRN Reason: Hypotension Fentanyl (Sublimaze) 100 mcg EPIDUR Q3H PRN PRN Reason: Pain Last Admin: 09/09/20 10:13 Dose: 100 mcg Documented by: Fentanyl/Bupivacaine HCl (Fentanyl/Bupivacaine/Ns 2 Mcg-0.125% 100 Ml) 100 ml EPIDUR ASDIRECTED PRN PRN Reason: Pain Oxytocin/Lactated Ringer's (Pitocin In Lr 10 Units/1,000 Ml) 10 unit in 1,000 mls @ 500 mls/hr IV .CONTINUOUS CARMEN Lactated Ringer's (Ringers, Lactated) 1,000 mls @ 100 mls/hr IV ASDIRECTED CARMEN Last Admin: 09/09/20 10:14 Dose: 100 mls/hr Documented by: Nalbuphine HCl (Nubain) 10 mg IVPUSH Q2H PRN PRN Reason: Pain Sodium Chloride (Saline Flush) 10 ml FLUSH ASDIRECTED PRN PRN Reason: Keep Vein Open
--- NOTE | 2020-09-09 18:37 | PCM.SN.2 ---
- Free Text/Narrative Note: Delivery Note: Tabitha is a 40-year-old 5 para 3-0-1-3 white female admitted at 40 and 07 weeks gestational age with an LUIS of 09/09/2020 in active labor with advanced cervical dilation of 6 cm. This to complete cervical dilation and at approximately 29 hours on 09/09/2020 she, lucio, male with Apgars of 9 and 9, a weight of 4140 g (9 pounds 2 ounces), a length of 21.5 inches in a direct occiput anterior position over an intact perineum. The baby was placed on mom's abdomen. Nose and mouth were bulb suctioned and baby was dried. Pitocin was increased to 500 cc an hour to facilitate increase in uterine tone and decrease likelihood of uterine bleeding. The umbilical cord was allowed to pulsate for approximately 2 to 3 minutes. It was then clamped x2 and cut by the baby's father. The umbilical cord had 3 vessels. Cord blood was obtained. The perineum was inspected and found to be intact. The placenta delivered in a [place] presentation, appeared intact and complete and was discarded per patient desire. Estimated blood loss was 200 cc. Patient plans to breast-feed. Condition: Good
[2020-09-09] MEDS ORDERED: Ibuprofen 600 MG Tab PO PRN (21:22)
[2020-09-09] MEDS ORDERED: Benzocaine/Menthol 20%-0.5% Spray 56 GM Canister TOP PRN (21:22)
[2020-09-09] MEDS ORDERED: Docusate Sodium 100 MG Cap PO PRN (21:22)
[2020-09-09] MEDS ORDERED: Witch Hazel Medicated Pads 40/Jar TOP PRN (21:22)
[2020-09-09] MEDS ORDERED: Acetaminophen 325 MG Tab PO PRN (21:22)
--- NOTE | 2020-09-10 06:39 | PCM.SN.2 ---
- Free Text/Narrative Note: note: Patient is doing well in the period. Minimal lochia, voiding well, ambulated without problems. Nursing without concerns. Patient is afebrile, vital signs are stable Abdomen is flat, soft, uterus is below the umbilicus and is firm and nontender. Legs are nontender. Assessment: recovery going well. Plan: Routine care. Patient be discharged home within the next 24-48 hours.
--- NOTE | 2020-09-10 06:43 | PCM.DCSUM1 ---
Discharge Summary - Hospital Course Free Text/Narrative:: Tabitha is a 40-year-old 5 para 3-0-1-3 white female admitted at 40 and 07 weeks gestational age with an LUIS of 09/09/2020 in active labor with advanced cervical dilation of 6 cm. This to complete cervical dilation and at approximately 29 hours on 09/09/2020 she, lucio, male infant with Apgars of 9 and 9, a weight of 4140 g (9 pounds 2 ounces), a length of 21.5 inches in a direct occiput anterior position over an intact perineum. The baby was placed on mom's abdomen. Nose and mouth were bulb suctioned and baby was dried. Pitocin was increased to 500 cc an hour to facilitate increase in uterine tone and decrease likelihood of uterine bleeding. The umbilical cord was allowed to pulsate for approximately 2 to 3 minutes. It was then clamped x2 and cut by the baby's father. The umbilical cord had 3 vessels. Cord blood was obtained. The perineum was inspected and found to be intact. The placenta delivered in a Rivera presentation, appeared intact and complete and was discarded per patient desire. Estimated blood loss was 200 cc. Patient plans to breast-feed. Patient is done well. She is ambulating well. Epidural has completely worn off. She is voiding without problems, has minimal lochia and is nursing well. She is desiring discharge home. Condition: Good Diagnosis: Stroke: No - Discharge Data Discharge Date: 09/10/20 Discharge Disposition: Home, Self-Care 01 Condition: Good - Referral to Home Health Primary Care Physician: Lucas Powell MD - Patient Instructions Diet: Regular Diet as Tolerated (Nursing diet with increased calories and calcium as recommended) Activity: As Tolerated (No intercourse or tampons until bleeding resolves) Driving: May Drive Today Showering/Bathing: May Shower Showering/Bathing, Other: May take a bath Notify Provider of: Fever, Increased Pain, Swelling and Redness, Nausea and/or Vomiting - Discharge Plan Home Medications: Home Meds Pnv No.95/Ferrous Fum/Folic AC [ Tablet] 1 tab PO DAILY 07/12/14 [History] Thyroid [[place] Thyroid] 105 mg PO DAILY 07/12/14 [History] Ferrous Sulfate [Iron] 1 tab PO DAILY 09/09/20 [History] Acetaminophen [Tylenol] 650 mg PO Q4H PRN tablet 09/10/20 [Rx] Ibuprofen [Motrin] 600 mg PO Q4H PRN tablet 09/10/20 [Rx] antoinette Chance [Tucks] 1 pad TOP ASDIRECTED PRN pad 09/10/20 [Rx] Referrals: Lucas Powell MD [Primary Care Provider] - (Return to clinicDr. Powell2-3 weeks.) - Discharge Summary/Plan Comment DC Time >30 min.: No Discharge Summary/Plan Comment: Discharge instructions: 1. Discharge home 2. Diet, activity and follow-up discussed with patient. Recommend nursing diet with increased calories and calcium. 3. Precautions given concern increased pain, bleeding, temperature, signs/symptoms of DVT/PE. 4. Medications per home medication was printed, discussed with and given to the patient. 5. Return to clinic-[facility]. Powell[facility] in 23 weeks. Diagnosis: Term -delivered Condition: Good - Patient Data Vitals - Most Recent: Last Vital Signs Temp 36.7 C 09/10/20 05:04 Pulse 78 09/09/20 09:11 Resp 16 09/10/20 05:04 BP 113/63 09/10/20 05:04 Pulse Ox 100 09/09/20 09:11 Weight - Most Recent: 69.853 kg Lab Results - Last 24 hrs: Laboratory Results - last 24 hr 09/09/20 09/09/20 09/09/20 Range/Units 09:40 09:45 09:45 WBC 10.23 H (3.98-10.04) K/mm3 RBC 3.75 L (3.98-5.22) M/mm3 Hgb 13.2 (11.2-15.7) gm/dl Hct 38.0 (34.1-44.9) % MCV 101.3 H (79.4-94.8) fl MCH 35.2 H (25.6-32.2) pg MCHC 34.7 (32.2-35.5) g/dl RDW Std Deviation 43.6 (36.4-46.3) fL Plt Count 156 L (182-369) K/mm3 MPV 10.6 (9.4-12.3) fl Neut % (Auto) 72.4 H (34.0-71.1) % Lymph % (Auto) 20.9 (19.3-51.7) % [place] % (Auto) 5.0 (4.7-12.5) % Eos % (Auto) 0.5 L (0.7-5.8) Baso % (Auto) 0.2 (0.1-1.2) % Neut # (Auto) 7.41 H (1.56-6.13) K/mm3 Lymph # (Auto) 2.14 (1.18-3.74) K/mm3 [place] # (Auto) 0.51 H (0.24-0.36) K/mm3 Eos # (Auto) 0.05 (0.04-0.36) K/mm3 Baso # (Auto) 0.02 (0.01-0.08) K/mm3 RPR Non-reactive (NONREACTIVE) SARS-CoV-2 RNA (HERMANN) Negative (NEGATIVE) Med Orders - Current: Current Medications Acetaminophen (Tylenol) 650 mg PO Q4H PRN PRN Reason: mild pain or fever Benzocaine/Menthol (Dermoplast Pain Relief [place]) 0 gm TOP ASDIRECTED PRN PRN Reason: Perineal Comfort Measure Docusate Sodium (Colace) 100 mg PO BID PRN PRN Reason: Constipation Ferrous Sulfate (Ferrous Sulfate) 324 mg PO DAILY CARMEN Ibuprofen (Motrin) 600 mg PO Q4H PRN PRN Reason: Mild pain or fever Prenat Multivit/[place]/Iron/Folic Ac ( Plus Iron) 1 each PO DAILY [facility] Thyroid ([place] Thyroid) 105 mg PO DAILY [facility] Witch Jessica (Tucks) 1 pad TOP ASDIRECTED PRN PRN Reason: Perineal Comfort Measure Discontinued Medications Bupivacaine HCl (Sensorcaine-Mpf 0.25%) 10 ml .ROUTE .STK-MED ONE Stop: 09/09/20 08:01 Diphenhydramine HCl (Benadryl) 25 mg IVPUSH Q6H PRN PRN Reason: pruritis Ephedrine Sulfate (Ephedrine Sulfate) 5 mg IVPUSH ASDIRECTED PRN PRN Reason: Hypotension Fentanyl (Sublimaze) 100 mcg EPIDUR Q3H PRN PRN Reason: Pain Last Admin: 09/09/20 12:46 Dose: 100 mcg Documented by: Fentanyl/Bupivacaine HCl (Fentanyl/Bupivacaine/Ns 2 Mcg-0.125% 100 Ml) 100 ml EPIDUR ASDIRECTED PRN PRN Reason: Pain Oxytocin/Lactated Ringer's (Pitocin In Lr 10 Units/1,000 Ml) 10 unit in 1,000 mls @ 500 mls/hr IV .CONTINUOUS CARMEN Last Admin: 09/09/20 13:32 Dose: 500 mls/hr Documented by: Lactated Ringer's (Ringers, Lactated) 1,000 mls @ 100 mls/hr IV ASDIRECTED CARMEN Last Admin: 09/09/20 12:14 Dose: 100 mls/hr Documented by: Lidocaine/Epinephrine (Xylocaine-Mpf 1.5% W/Epinephrine 1:200,000) 5 ml .ROUTE .[facility]-MED ONE Stop: 09/09/20 08:01 Nalbuphine HCl (Nubain) 10 mg IVPUSH Q2H PRN PRN Reason: Pain Sodium Chloride (Saline Flush) 10 ml FLUSH ASDIRECTED PRN PRN Reason: Keep Vein Open Thyroid ([place] Thyroid) 105 mg PO DAILY CARMEN
--- NOTE | 2020-09-10 07:07 | PCM48HPAN ---
Post Anesthesia Note - EVALUATION WITHIN 48HRS OF ANESTHETIC Vital Signs in Normal Range: Yes Patient Participated in Evaluation: Yes Respiratory Function Stable: Yes Airway Patent: Yes Cardiovascular Function Stable: Yes Hydration Status Stable: Yes Pain Control Satisfactory: Yes Nausea and Vomiting Control Satisfactory: Yes Mental Status Recovered: Yes Vital Signs: Last Vital Signs Temp 36.7 C 09/10/20 05:04 Pulse 78 09/09/20 09:11 Resp 16 09/10/20 05:04 BP 113/63 09/10/20 05:04 Pulse Ox 100 09/09/20 09:11 - COMMENTS/OBSERVATIONS Free Text/Narrative:: no anesthesia complications noted
[2020-09-10] MEDS ORDERED: Thyroid 60 MG Tab PO SCH (09:00)
[2020-09-10] MEDS ORDERED: Ferrous Sulfate 324 MG Tab.EC PO SCH (09:00)
[2020-09-10] MEDS ORDERED: Prenatal Multivitamin with Calcium/Folic Acid/Iron Tab PO SCH (09:00)
[2020-09-11] MEDS ORDERED: THYROID 60 MG PO SCH (06:00)
== END 2020-09-10 15:00 | disposition home or self-care (01) | DRG 560 ==
LOC: JD.OB 08:56 → JD.OBCHECK 08:56 → JD.OB 09:23 → JD.OBCHECK 09:23 → OBSVTOIN 13:29 → JD.OB 13:30
PROVIDERS: ADMIT Obstetrics & Gynecology; ATTEND Obstetrics & Gynecology
PROC: 10E0XZZ Delivery of Products of Conception, External Approach (ICD-10-PCS; principal; 2020-09-09)
PROC: 3E0R3BZ Introduction of Anesthetic Agent into Spinal Canal, Percutaneous Approach (ICD-10-PCS; 2020-09-09)
PROC: 10907ZC Drainage of Amniotic Fluid, Therapeutic from Products of Conception, Via Natural or Artificial Opening (ICD-10-PCS; 2020-09-09)
DX: O48.0 Post-term pregnancy (principal); Z3A.40 40 weeks gestation of pregnancy; Z37.0 Single live birth; Z88.5 Allergy status to narcotic agent; O99.284 Endocrine, nutritional and metabolic diseases complicating childbirth; E03.9 Hypothyroidism, unspecified
CPT/HCPCS: 01967; 36415; 51702; 59025; 59409; 85025; 86592; J2590; J3010; J3490; J7120; U0002

== ENCOUNTER 2020-12-01 18:20 | Day surgery (SDC) | payer BC ==
[2020-12-01] MEDS ORDERED: Lidocaine 1% 4 ML ONE (19:48)
[2020-12-01] MEDS ORDERED: Propofol 200 MG/20 ML SDV ONE (19:48)
[2020-12-01] MEDS ORDERED: Rocuronium 50 MG/5 ML Vial ONE (19:48)
[2020-12-01] MEDS ORDERED: Ondansetron 4 MG/2 ML SDV ONE (19:48)
[2020-12-01] MEDS ORDERED: fentaNYL 250 MCG/5 ML SDV ONE (19:48)
[2020-12-01] MEDS ORDERED: Midazolam 1 MG/ML 2 ML SDV ONE (19:48)
--- NOTE | 2020-12-01 19:51 | PCM.HP.2 ---
H&P History of Present Illness - General Date of Service: 12/01/20 Source of Information: Patient, Provider History Limitations: Reports: No Limitations - History of Present Illness Initial Comments - Free Text/Narative: The patient is a 40 y/o lady who presents with 2 days of lower abdominal pain. She was seen in the clinic earlier today and found to have an acute abdomen. She underwent CT scan of her abdomen which revealed findings of appendicitis. She reports her pain started yesterday. She has had decreased appetite. She has had normal bowel movements. She denies any nausea or vomiting. She denies any fever. Lower Abdomen Pain Score (Numeric/FACES): 8 - Related Data Allergies/Adverse Reactions: Allergies Allergy/AdvReac Type Severity Reaction Status Date / Time codeine AdvReac Vomiting Verified 12/01/20 18:44 Home Medications: Home Meds Thyroid [[place] Thyroid] 120 mcg PO DAILY 07/12/14 [History] Ibuprofen [Motrin] 600 mg PO Q4H PRN tablet 09/10/20 [Rx] Past Medical History HEENT 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: None Gastrointestinal 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: GERD LINESPERSON 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: Musculoskeletal 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: Other (See Below) Other Musculoskeletal History: lower back surgery, dorsal risotomy Neurological 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: Cerebral Palsy Psychiatric 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: Anxiety, Depression, Other (See Below) Other Psychiatric History: States "seasonal" Endocrine/Metabolic 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: Hypothyroidism Hematologic 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: Anemia, Other (See Below) Other Hematologic History: Anemia in - Past Surgical History HEENT Surgical 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: Tonsillectomy Neurological Surgical 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: Other (See Below) Other Neurological Surgeries/Procedures: lower back Social & Family History - Family History Cardiac: Reports: None Endocrine/Metabolic: Reports: None - Caffeine Use Caffeine Use: Reports: Coffee, Soda, Tea Other Caffeine Use: 2-3 per day H&P Review of Systems - Review of Systems: Review Of Systems: See Below General: Reports: Decreased Appetite HEENT: Reports: No Symptoms Pulmonary: Reports: No Symptoms Cardiovascular: Reports: No Symptoms Gastrointestinal: Reports: Abdominal Pain Genitourinary: Reports: No Symptoms Musculoskeletal: Reports: No Symptoms Skin: Reports: No Symptoms Neurological: Reports: No Symptoms Hematologic/Lymphatic: Reports: No Symptoms Exam - Exam Exam: See Below - Vital Signs Vital Signs: Last Vital Signs Temp 37.5 C 12/01/20 18:50 Pulse 62 12/01/20 18:50 Resp 14 12/01/20 18:50 BP 110/64 12/01/20 18:50 Pulse Ox 97 12/01/20 18:50 Weight: 58.967 kg - Exam Quality Assessment: No: Supplemental Oxygen General: Alert, Oriented HEENT: Conjunctiva Clear, EOMI Neck: Supple Lungs: Normal Respiratory Effort Cardiovascular: Regular Rate, Regular Rhythm GI/Abdominal Exam: Soft, Rebound (in RLQ), Tender (in RLQ) Extremities: Normal Inspection, No Pedal Edema Peripheral Pulses: 2+: Dorsalis Pedis (L), Dorsalis Pedis (R) Skin: Warm, Dry, Intact Neurological: Cranial Nerves Intact Neuro Extensive - Mental Status: Normal Mood/Affect Sepsis Event Note - Evaluation Sepsis Screening Result: No Definite Risk - Focused Exam Vital Signs: Vital Signs Temp Pulse Resp BP Pulse Ox 12/01/20 18:50 37.5 C 62 14 110/64 97 *Q Meaningful Use (ADM) - VTE Risk Assess *Q Each Risk Factor Represents 1 Point: Age 41 - 59 years, Minor Surgery Planned Total Score 1 Point Risk Factors: 2 - Problem List (1) Acute appendicitis SNOMED Code(s): 95821747 ICD Code: K35.80 - UNSPECIFIED ACUTE APPENDICITIS Status: Acute Current Visit: Yes Problem List Initiated/Reviewed/Updated: Yes Orders Last 24hrs: Active Orders 24 hr Category Date Time Status CORONAVIRUS COVID-19 [facility] [[facility]] Stat Lab 12/01/20 19:10 Received Assessment/Plan Comment:: 40 y/o lady with acute appendicitis - plan for laparoscopic appendectomy, possible open. Discussed risks of bleeding, infection, and bowel injury. Her written consent was obtained. - NPO with IVF - IV zosyn - will assess need for inpatient stay based on operative findings Maribel Sparks MD General surgery - Mortality Measure Prognosis:: Good
[2020-12-01] MEDS ORDERED: Piperacillin/Tazobactam 4.5 GM in Sodium Chloride 0.9% 100 ML IV ONE (19:53)
--- NOTE | 2020-12-01 20:00 | PCM.PREANE ---
Preanesthetic Assessment - Procedure Proposed Procedure: lap appy - Anesthesia/Transfusion/Family Hx Anesthesia History: Prior Anesthesia Without Reaction Family History of Anesthesia Reaction: No Transfusion History: No Prior Transfusion(s) Type of Transfusion Reactions: Reports: Unknown - Review of Systems General: Chills Pulmonary: No Symptoms Cardiovascular: No Symptoms Gastrointestinal: Abdominal Pain (last night at 9), Decreased Appetite Neurological: No Symptoms Other: Reports: Thyroid Problems, Depression - Physical Assessment NPO Status Date: 12/01/20 NPO Status Time: 10:00 (1630 orange juice) Vital Signs: Last Vital Signs Temp 99.5 F 12/01/20 18:50 Pulse 62 12/01/20 18:50 Resp 14 12/01/20 18:50 BP 110/64 12/01/20 18:50 Pulse Ox 97 12/01/20 18:50 Height: 5 ft 6 in Weight: 58.967 kg ASA Class: 2E Mental Status: Alert & Oriented x3 Airway Class: Mallampati = 1 Dentition: Reports: Normal Dentition Thyro-Mental Finger Breadths: 3 Mouth Opening Finger Breadths: 3 ROM/Head Extension: Full Lungs: Clear to Auscultation, Normal Respiratory Effort Cardiovascular: Regular Rate, Regular Rhythm - Allergies Allergies/Adverse Reactions: Allergies Allergy/AdvReac Type Severity Reaction Status Date / Time codeine AdvReac Vomiting Verified 12/01/20 18:44 - Blood Blood Available: No - Acknowledgements Anesthesia Type Planned: General Anesthesia Pt an Appropriate Candidate for the Planned Anesthesia: Yes Alternatives and Risks of Anesthesia Discussed w Pt/Guardian: Yes Pt/Guardian Understands and Agrees with Anesthesia Plan: Yes PreAnesthesia Questionnaire - Past Health History Medical/Surgical History: Denies Medical/Surgical History HEENT 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: None Cardiovascular 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: None Respiratory 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: None Gastrointestinal 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: GERD (with preg) GEOMETRICIAN 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: Musculoskeletal 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: Other (See Below) Other Musculoskeletal History: lower back surgery, dorsal risotomy Neurological 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: Cerebral Palsy, Other (See Below) (cerebral palsy- affected left side) Psychiatric 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: Anxiety, Depression, Other (See Below) Other Psychiatric History: States "seasonal" Endocrine/Metabolic 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: Hypothyroidism Hematologic 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: Anemia, Other (See Below) Other Hematologic History: Anemia in Oncologic (Cancer) 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: None - Past Surgical History HEENT Surgical 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: Tonsillectomy Neurological Surgical 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: Other (See Below) Other Neurological Surgeries/Procedures: lower back - SUBSTANCE USE Tobacco Use Status *Q: Never Tobacco User Tobacco Use Within Last Twelve Months: No Second Hand Smoke Exposure: No Days Per Week of Alcohol Use: 0 Recreational Drug Use History: No - HOME MEDS Home Medications: Home Meds Thyroid [[place] Thyroid] 120 mcg PO DAILY 07/12/14 [History] Ibuprofen [Motrin] 600 mg PO Q4H PRN tablet 09/10/20 [Rx] - CURRENT (IN HOUSE) MEDS Current Meds: Current Medications Piperacillin Sod/Tazobactam (Sod 4.5 gm/ Sodium Chloride) 100 mls @ 200 mls/hr IV ONETIME ONE Stop: 12/01/20 20:22 Discontinued Medications Bupivacaine HCl/Epinephrine Bitart (Marcaine 0.5%/Epinephrine 1:200,000) Confirm Administered Dose 50 ml .ROUTE .STK-MED ONE Stop: 12/01/20 19:50 Fentanyl (Sublimaze) Confirm Administered Dose 250 mcg .ROUTE .STK-MED ONE Stop: 12/01/20 19:49 Lidocaine HCl (Xylocaine-Mpf 1%) Confirm Administered Dose 4 mls @ as directed .ROUTE .STK-MED ONE Stop: 12/01/20 19:49 Lidocaine/Epinephrine (Xylocaine 1% With Epinephrine 1:100,000) Confirm Administered Dose 30 ml .ROUTE .STK-MED ONE Stop: 12/01/20 19:50 Midazolam HCl (Versed 1 Mg/Ml) Confirm Administered Dose 2 mg .ROUTE .STK-MED ONE Stop: 12/01/20 19:49 Ondansetron HCl (Zofran) Confirm Administered Dose 4 mg .ROUTE .STK-MED ONE Stop: 12/01/20 19:49 Propofol (Diprivan 20 Ml) Confirm Administered Dose 200 mg .ROUTE .STK-MED ONE Stop: 12/01/20 19:49 Rocuronium [place] (Zemuron) Confirm Administered Dose 50 mg .ROUTE .STK-MED ONE Stop: 12/01/20 19:49
[2020-12-01] MEDS ORDERED: Dexamethasone 4 MG/ML 5 ML MDV ONE (20:18)
[2020-12-01] MEDS: Bupivacaine 0.5%/EPINEPHrine 1:200,000 50 ML MDV ONE ×2 (20:20→20:30)
[2020-12-01] MEDS: Lidocaine 1% with EPINEPHrine 1:100,000 10 ML MDV ONE ×2 (20:20→20:30)
[2020-12-01] MEDS ORDERED: Ondansetron 4 MG/2 ML SDV IVPUSH PRN (20:28)
[2020-12-01] MEDS ORDERED: fentaNYL 100 MCG/2 ML SDV IVPUSH PRN (20:28)
[2020-12-01] MEDS ORDERED: Metoclopramide 10 MG/2 ML SDV ONE (20:35)
[2020-12-01] MEDS ORDERED: Lactated Ringers 1,000 ML ONE ×2 (20:48)
[2020-12-01] MEDS ORDERED: Ketorolac 30 MG/ML SDV ONE (21:07)
--- NOTE | 2020-12-01 21:08 | PCM.OPNOTE ---
- General Post-Op/Procedure Note Date of Surgery/Procedure: 12/01/20 Operative Procedure(s): laparoscopic appendectomy Findings: acute appendicitis Pre Op Diagnosis: acute appendicitis Post-Op Diagnosis: same Anesthesia Technique: General ET Tube Primary Surgeon: Maribel Sparks Anesthesia Provider: Diandra Fletcher Pathology: appendix Fluid Replacement, Intraop: 1,000 Output, Urine Amount: 0 EBL in mLs: 5 Complications: none apparent Condition: Good
--- NOTE | 2020-12-01 21:13 | PCM.PRNOTE ---
- Free Text/Narrative Note: Operative Report Date of surgery: December 01, 2020 Preoperative diagnosis: acute appendicitis. Postoperative diagnosis: same Procedure performed: laparoscopic appendectomy Surgeon: Dr. Maribel Sparks Anesthesia: General Technical Illustrator: Diandra Fletcher CRNA Estimated blood loss [5 mL] IV fluids: 1000mL Urine output: 0 Drains and lines: none Findings: acute appendicitis, not perforated Pathology: appendix Indications for procedure: The patient is a 40 y/o lady who presented with acute appendicitis. She was consented for a laparoscopic appendectomy, possible open. After discussion of the risks of infection, bleeding, and bowel injury, her written consent was obtained. Description of procedure: The patient was taken back to the operating room and placed in supine position on the operating table. SCD boots were in place and functional prior to the start of the procedure. Preoperative antibiotics were a dministered. The patient had successful induction of general anesthesia and was intubated without difficulty. Pt was then prepped and draped in standard surgical fashion and a timeout was performed. We began by making a 15 mm incision in the infraumbilical skin and deepened down to level of the fascia which was then grasped and incised sharply. We entered the peritoneum and then placed stay sutures of 0 Vicryl on the fascial edges. A 12 mm [place] port was then placed into the umbilicus and the balloon was inflated. The abdomen was insufflated to 15 mmHg a 5 mm camera was inserted. There was no evidence of any injury created from entry into the abdomen. A TAP block was performed using mixed 1% lidocaine with epinephrine and 0.5% bupivacaine with epinephrine. We then proceeded to place a 5 mm port under direct visualization in the suprapubic midline and an additional 5mm port in the left lower quadrant. The patient was then positioned in Trendelenburg with right side elevated and we proceeded to mobilize the appendix. The appendix was inflamed and friable, with a hyperemic appearance. The appendix was then grasped and with blunt dissection was brought into the surgical field. The mesoappendix dissected from the appendix with the Ligasure. The appendix was then taken with a tissue staple load. The specimen was in place in the Endo Catch bag. We then inspected and removed any blood in the area. There was a moderated amount of fluid in the abdomen, which was removed with a RayTec. There was no active bleeding at the end of this case. The abdomen was then desufflated and the umbilical fascia closed with 0 Vicryl sutures and the stay sutures were tied, effectively closing the umbilical port site. The skin was then reapproximated at all port sites using a 4-0 Monocryl subcutaneous stitch and covered with Dermabond surgical glue. The patient tolerated the procedure. She was extubated and transported to the PACU in stable condition. All sponge and needle counts were correct. Maribel Sparks MD General Surgery
--- NOTE | 2020-12-01 21:15 | PCM.POSTAN ---
POST ANESTHESIA ASSESSMENT - MENTAL STATUS Mental Status: Alert, Oriented - VITAL SIGNS Vital Signs: Last Vital Signs Temp 99.5 F 12/01/20 18:50 Pulse 62 12/01/20 18:50 Resp 14 12/01/20 18:50 BP 110/64 12/01/20 18:50 Pulse Ox 97 12/01/20 18:50 2109 139/67 107 16 99.2 96% - RESPIRATORY Respiratory Status: Respiratory Rate WNL, Airway Patent, O2 Saturation Stable, Supplemental Oxygen - CARDIOVASCULAR CV Status: Pulse Rate WNL, Blood Pressure Stable - GASTROINTESTINAL GI Status: No Symptoms - PAIN Pain Score: 0 (denies) - POST OP HYDRATION Hydration Status: Adequate & Stable - OBSERVATIONS Free Text/Narrative:: Has the shakes- warm blankets given. has temp 99.2
--- NOTE | 2020-12-01 21:54 | PCM48HPAN ---
Post Anesthesia Note - EVALUATION WITHIN 48HRS OF ANESTHETIC Vital Signs in Normal Range: Yes Patient Participated in Evaluation: Yes Respiratory Function Stable: Yes Airway Patent: Yes Cardiovascular Function Stable: Yes Hydration Status Stable: Yes Pain Control Satisfactory: Yes Nausea and Vomiting Control Satisfactory: Yes Mental Status Recovered: Yes Vital Signs: Last Vital Signs Temp 100.0 F 12/01/20 21:40 Pulse 77 12/01/20 21:40 Resp 16 12/01/20 21:40 BP 116/54 L 12/01/20 21:40 Pulse Ox 98 12/01/20 21:40 - COMMENTS/OBSERVATIONS Free Text/Narrative:: rests- denies pain.
== END 2020-12-01 22:45 | disposition home or self-care (01) ==
LOC: JD.ED 18:20 → JD.SDS 19:45
PROVIDERS: ATTEND Surgery
DX: K35.30 Acute appendicitis with localized peritonitis, without perforation or gangrene (principal); E03.9 Hypothyroidism, unspecified; Z01.812 Encounter for preprocedural laboratory examination; Z20.822 Contact with and (suspected) exposure to COVID-19; Z79.899 Other long term (current) drug therapy; Z98.890 Other specified postprocedural states; Z88.5 Allergy status to narcotic agent
CPT/HCPCS: 44970; 87635; J1100; J1885; J2250; J2405; J2704; J2710; J2765; J3010; J3490; J7120; 00840; 99140; U0002

== ENCOUNTER 2022-01-27 12:50 | Day surgery (SDC) | payer BC ==
[~2022-01-27 12:50] MED LIST changes: -Bupivacaine 0.25% 10 ML SDV ONE; +Lactated Ringers 1,000 ML IV SCH; +Lidocaine 1% with EPINEPHrine 1:100,000 20 ML MDV ONE; +Lidocaine 1%/Sod Bicarbonate in NS 8.4% 1 ML Syringe IDERM PRN; -Lidocaine 1.5% with EPINEPHrine 1:200,000 5 ML Amp ONE; +Midazolam 1 MG/ML 2 ML SDV ONE; +Propofol 200 MG/20 ML SDV ONE; +Sodium Chloride 0.9% 10 ML Syringe FLUSH PRN; +Sodium Chloride 0.9% 10 ML Syringe FLUSH SCH; +Sodium Chloride 0.9% 50 ML SDV ONE; +ceFAZolin 1 GM Vial ONE; +fentaNYL 100 MCG/2 ML SDV ONE
[2022-01-27] MEDS ORDERED: Ondansetron 4 MG/2 ML SDV ONE (13:28)
[2022-01-27] MEDS ORDERED: Lidocaine 1% 2 ML ONE (13:28)
[2022-01-27] MEDS ORDERED: Propofol 200 MG/20 ML SDV ONE (13:52)
== END 2022-01-27 15:21 | disposition home or self-care (01) ==
LOC: JD.SDS 12:50
PROVIDERS: ATTEND Surgery
DX: C50.911 Malignant neoplasm of unspecified site of right female breast (principal); E03.9 Hypothyroidism, unspecified; F41.9 Anxiety disorder, unspecified; Z79.890 Hormone replacement therapy; Z98.890 Other specified postprocedural states; Z79.899 Other long term (current) drug therapy; Z88.5 Allergy status to narcotic agent
CPT/HCPCS: 36561; 71045; 76000; C1751; C1788; J0690; J1642; J2250; J2405; J2704; J3010; J7120

== ENCOUNTER 2022-03-10 22:13 | Emergency (ER) | payer BC ==
[2022-03-10] MEDS ORDERED: Sodium Chloride 0.9% 10 ML Syringe FLUSH PRN (22:32)
[2022-03-10] MEDS ORDERED: Sodium Chloride 0.9% 1,000 ML IV SCH (22:45)
[2022-03-11] MEDS ORDERED: cefTRIAXone 1 GM in Sodium Chloride 0.9% 100 ML IV ONE (00:55)
== END 2022-03-11 01:45 | disposition home or self-care (01) ==
LOC: JD.ED 22:13
DX: S21.112A Laceration without foreign body of left front wall of thorax without penetration into thoracic cavity, initial encounter (principal); K21.9 Gastro-esophageal reflux disease without esophagitis; E03.9 Hypothyroidism, unspecified; Z88.5 Allergy status to narcotic agent; Z79.899 Other long term (current) drug therapy; W22.09XA Striking against other stationary object, initial encounter
CPT/HCPCS: 36415; 71045; 80053; 85025; 96361; 96365; 99283; J0696; J3490; J7030

== ENCOUNTER 2022-03-17 06:40 | Day surgery (SDC) | payer BC ==
[~2022-03-17 06:40] MED LIST changes: -Lidocaine 1% with EPINEPHrine 1:100,000 20 ML MDV ONE; -Midazolam 1 MG/ML 2 ML SDV ONE; -Propofol 200 MG/20 ML SDV ONE; -Sodium Chloride 0.9% 50 ML SDV ONE; -ceFAZolin 1 GM Vial ONE; -fentaNYL 100 MCG/2 ML SDV ONE
[2022-03-17] MEDS ORDERED: Lidocaine 1% with EPINEPHrine 1:100,000 20 ML MDV ONE (07:14)
[2022-03-17] MEDS ORDERED: Lidocaine 1% with EPINEPHrine 1:100,000 10 ML MDV ONE (07:14)
[2022-03-17] MEDS ORDERED: Sodium Chloride 0.9% 50 ML SDV ONE (07:15)
[2022-03-17] MEDS ORDERED: Lidocaine 1% 4 ML ONE ×2 (07:18→07:19)
[2022-03-17] MEDS ORDERED: Propofol 200 MG/20 ML SDV ONE ×2 (07:18→08:42)
[2022-03-17] MEDS ORDERED: Midazolam 1 MG/ML 2 ML SDV ONE (07:19)
[2022-03-17] MEDS ORDERED: fentaNYL 100 MCG/2 ML SDV ONE ×2 (07:19→08:59)
[2022-03-17] MEDS ORDERED: Ondansetron 4 MG/2 ML SDV ONE (08:34)
[2022-03-17] MEDS ORDERED: ceFAZolin 1 GM Vial ONE (08:34)
[2022-03-17] MEDS ORDERED: Ketamine 500 mg/10 ML MDV ONE (08:39)
[2022-03-17] MEDS ORDERED: ePHEDrine 50 MG/ML SDV ONE (09:05)
[2022-03-17] MEDS ORDERED: Lactated Ringers 1,000 ML ONE (09:06)
== END 2022-03-17 11:15 | disposition home or self-care (01) ==
LOC: JD.SDS 06:40
PROVIDERS: ATTEND Surgery
DX: C50.911 Malignant neoplasm of unspecified site of right female breast (principal); K21.9 Gastro-esophageal reflux disease without esophagitis; F41.9 Anxiety disorder, unspecified; F32.A Depression, unspecified; E03.9 Hypothyroidism, unspecified; Z88.5 Allergy status to narcotic agent; Z79.899 Other long term (current) drug therapy; Z79.890 Hormone replacement therapy
CPT/HCPCS: 36561; 71045; 76000; 87641; C1788; J0690; J1642; J2250; J2405; J2704; J3010; J3490; J7120